=== PATIENT | male | born 1930 | race Caucasian/White ===

== ENCOUNTER 2017-02-21 19:09 | Inpatient (IN) | payer MEDICARE ==
[~2017-02-21] VITALS: Ht 170.2 cm; Wt 78.6 kg
[2017-02-21 20:17] LABS: BASOPHIL 0.1 % (0-2); EOSINOPHIL 0.4 % (0-7); HCT 33.9 % (42.0-52.0); HGB 10.3 g/dl (13.2-18.0); LYMPHOCYTE 4.6 % (15-48); MCH 24.6 pg (25.0-31.0); MCHC 30.4 g/dL (32.0-36.0); MCV 81.1 fL (78.0-100.0); MONOCYTE 5.3 % (0-12); MPV 10.2 fL (6.0-9.5); NEUTROPHIL 89.6 % (41-80); PLT 340 K/uL (150-400); RBC 4.18 M/uL (4.70-6.00); RDW 17.5 % (11.5-14.0); WBC 11.1 K/uL (4.0-10.5)
[2017-02-21 20:28] LABS: INR 1.11 (0.9-1.2); PROTHROMBIN TIME 13.9 SECONDS (11.7-14.0); PTT 32.7 SECONDS (23.2-31.4)
[2017-02-21 20:35] LABS: LACTIC ACID 2.9 mmol/L (0.5-2.2)
[2017-02-21 20:38] LABS: ACETAMINOPHEN (TYLENOL) < 5.0 ug/mL (10.0-30.0); ALCOHOL (ETOH) MEDICAL NONE DETECTED; SALICYLATE < 6 ug/mL (0-300)
[2017-02-21 20:39] LABS: ALBUMIN 3.5 g/dL (3.4-4.8); BILIRUBIN - TOTAL 0.3 mg/dL (0.1-1.0); CREATININE 1.9 mg/dL (0.7-1.2); POTASSIUM 6.3 mmol/L (3.5-5.1); TOTAL PROTEIN 6.5 g/dL (6.4-8.3)
[2017-02-21 20:56] LABS: BILIRUBIN NEGATIVE (NEGATIVE); BLOOD TRACE-INTACT Ery/uL (NEGATIVE); CLARITY CLEAR (CLEAR); COLOR YELLOW (YELLOW); GLUCOSE (U) NORMAL (NORMAL); KETONE (U) TRACE mg/dL (NEGATIVE); LEUKOCYTES TRACE Leu/uL (NEGATIVE); NITRITE NEGATIVE (NEGATIVE); PROTEIN NEGATIVE (NEGATIVE); SPECIFIC GRAVITY <=1.005 (1.001-1.030); UROBILINOGEN 0.2 mg/dL (0.2-1.0)
[2017-02-21 21:01] LABS: SQUAMOUS EPITHELIAL CELLS RARE; URINARY RBC RARE; URINARY WBC RARE
[2017-02-21 21:04] LABS: AMPHETAMINES NEGATIVE (NEGATIVE); BARBITURATES NEGATIVE (NEGATIVE); BENZODIAZEPINES NEGATIVE (NEGATIVE); COCAINE NEGATIVE (NEGATIVE); MARIJUANA (THC) NEGATIVE (NEGATIVE); METHADONE NEGATIVE (NEGATIVE); TRICYCLIC ANTIDEPRESSANT NEGATIVE (NEGATIVE)
[2017-02-22 01:35] LABS: CREATININE 1.8 mg/dL (0.7-1.2); MAGNESIUM 2.44 mg/dL (1.40-2.10); POTASSIUM 6.2 mmol/L (3.5-5.1)
[2017-02-22 07:00] LABS: CREATININE 1.8 mg/dL (0.7-1.2)
[2017-02-22 13:25] LABS: CREATININE 1.8 mg/dL (0.7-1.2); POTASSIUM 5.1 mmol/L (3.5-5.1)
--- NOTE | 2017-02-22 13:31 | NUR ---
DR STILES CALLED TO EXAMINE PT SEIZURE ACTIVITE. BLOOD SUGAR 38. 1 AMP D50 GIVEN. WILL CONTINUE TO MONITOR BLOOD GLUCOSE HOURLY.
--- NOTE | 2017-02-22 22:23 | NUR ---
JOSELITO WATCH GIVEN TO ROCÍO, DAUGHTER, TO TAKE HOME. PT AGREED FOR HER TO TAKE IT HOME.
[2017-02-23 04:21] LABS: HCT 26.5 % (42.0-52.0); HGB 7.8 g/dl (13.2-18.0); MCH 24.1 pg (25.0-31.0); MCHC 29.4 g/dL (32.0-36.0); MPV 9.6 fL (6.0-9.5); RBC 3.23 M/uL (4.70-6.00); RDW 17.7 % (11.5-14.0); WBC 3.9 K/uL (4.0-10.5)
[2017-02-23 04:41] LABS: CREATININE 1.8 mg/dL (0.7-1.2); POTASSIUM 4.4 mmol/L (3.5-5.1)
[2017-02-23 08:47] LABS: IRON 12 ug/dL (44-196); IRON % SATURATION 5 %SAT (20-50); TIBC (TOTAL IRON + UIBC) 255 U/L (228-428); UIBC 243 ug/dL (112-346)
[2017-02-23 09:06] LABS: FOLIC ACID (SERUM) 7.1 ng/mL (5.6-45.8)
[2017-02-23 11:00] LABS: BILIRUBIN NEGATIVE (NEGATIVE); BLOOD 2+ Ery/uL (NEGATIVE); CLARITY CLEAR (CLEAR); COLOR YELLOW (YELLOW); GLUCOSE (U) NORMAL (NORMAL); KETONE (U) NEGATIVE (NEGATIVE); LEUKOCYTES NEGATIVE Leu/uL (NEGATIVE); NITRITE NEGATIVE (NEGATIVE); PROTEIN NEGATIVE (NEGATIVE); SPECIFIC GRAVITY 1.015 (1.001-1.030); UROBILINOGEN 0.2 mg/dL (0.2-1.0)
[2017-02-23 11:10] LABS: URINARY WBC RARE
[2017-02-23 11:11] LABS: BACTERIA TRACE; SQUAMOUS EPITHELIAL CELLS RARE
[2017-02-23 11:27] LABS: URINE CREATININE 48.5 mg/dL (40-278); URINE TOTAL PROTEIN-RANDOM 12.2 mg/dL
[2017-02-23 16:40] LABS: CREATININE 1.5 mg/dL (0.7-1.2); POTASSIUM 4.1 mmol/L (3.5-5.1)
[2017-02-24 04:13] LABS: CREATININE 1.4 mg/dL (0.7-1.2); MAGNESIUM 1.8 mg/dL (1.40-2.10); PHOSPHORUS 2.9 mg/dL (2.7-4.5); POTASSIUM 4.5 mmol/L (3.5-5.1)
[2017-02-24 05:09] LABS: HCT 29.1 % (42.0-52.0); HGB 8.7 g/dl (13.2-18.0); MCHC 29.9 g/dL (32.0-36.0); MCV 83.6 fL (78.0-100.0); MPV 10.3 fL (6.0-9.5); RBC 3.48 M/uL (4.70-6.00); RDW 17.4 % (11.5-14.0); WBC 5.2 K/uL (4.0-10.5)
[2017-02-25 04:20] LABS: HCT 30.7 % (42.0-52.0); HGB 9.5 g/dl (13.2-18.0); MCH 25.1 pg (25.0-31.0); MCHC 30.9 g/dL (32.0-36.0); MCV 81.2 fL (78.0-100.0); MPV 9.7 fL (6.0-9.5); RBC 3.78 M/uL (4.70-6.00); RDW 17.7 % (11.5-14.0); WBC 5.8 K/uL (4.0-10.5)
[2017-02-25 04:43] LABS: CREATININE 1.4 mg/dL (0.7-1.2); POTASSIUM 4.3 mmol/L (3.5-5.1)
[2017-02-26 05:02] LABS: HCT 31.5 % (42.0-52.0); HGB 9.8 g/dl (13.2-18.0); MCH 25.1 pg (25.0-31.0); MCHC 31.1 g/dL (32.0-36.0); MCV 80.6 fL (78.0-100.0); MPV 9.8 fL (6.0-9.5); RBC 3.91 M/uL (4.70-6.00); RDW 17.3 % (11.5-14.0); WBC 5.8 K/uL (4.0-10.5)
[2017-02-26 05:26] LABS: CREATININE 1.2 mg/dL (0.7-1.2); POTASSIUM 4.3 mmol/L (3.5-5.1)
[2017-02-27 04:44] LABS: MCH 24.8 pg (25.0-31.0); MCHC 31.3 g/dL (32.0-36.0); MCV 79.4 fL (78.0-100.0); MPV 10.1 fL (6.0-9.5); RBC 4.03 M/uL (4.70-6.00); RDW 17.2 % (11.5-14.0)
[2017-02-27 04:58] LABS: CREATININE 1.2 mg/dL (0.7-1.2); POTASSIUM 4.7 mmol/L (3.5-5.1)
== END 2017-02-27 14:27 | DRG 643 ==
LOC: FER 19:09 → FMS 22:57 → FICU 22:57 → FTCU 22:57 → FICU 02-22 01:56 → FTCU 02-24 14:30 → FMS 02-25 11:00
PROVIDERS: Allergy & Immunology; Emergency Medicine; Internal Medicine Nephrology; Nurse Practitioner Family; ADMIT Internal Medicine
DX: E16.0 Drug-induced hypoglycemia without coma (principal); G93.41 Metabolic encephalopathy; N17.9 Acute kidney failure, unspecified; E87.2 Acidosis; I95.9 Hypotension, unspecified; E87.5 Hyperkalemia; J44.9 Chronic obstructive pulmonary disease, unspecified; K27.9 Peptic ulcer, site unspecified, unspecified as acute or chronic, without hemorrhage or perforation; D50.9 Iron deficiency anemia, unspecified; I12.9 Hypertensive chronic kidney disease with stage 1 through stage 4 chronic kidney disease, or unspecified chronic kidney disease; Z91.14 Patient's other noncompliance with medication regimen; E78.5 Hyperlipidemia, unspecified; N18.3 Chronic kidney disease, stage 3 (moderate); G89.29 Other chronic pain; M54.9 Dorsalgia, unspecified; N20.0 Calculus of kidney; R35.0 Frequency of micturition; T38.3X5A Adverse effect of insulin and oral hypoglycemic [antidiabetic] drugs, initial encounter; E11.22 Type 2 diabetes mellitus with diabetic chronic kidney disease; H91.90 Unspecified hearing loss, unspecified ear; R35.1 Nocturia; Z83.3 Family history of diabetes mellitus; Z86.73 Personal history of transient ischemic attack (TIA), and cerebral infarction without residual deficits; Z79.01 Long term (current) use of anticoagulants; Z79.82 Long term (current) use of aspirin; Z87.891 Personal history of nicotine dependence
CPT/HCPCS: 36415; 36430; 36600; 70450; 71010; 71250; 76770; 80048; 80053; 80305; 81001; 82533; 82550; 82570; 82607; 82728; 82746; 82803; 82947; 82962; 83540; 83550; 83605; 83735; 84100; 84156; 84300; 84484; 85025; 85610; 85730; 86850; 86900; 86901; 86922; 87205; 87324; 87449; 93005; 94010; 94640; 97110; 97116; 97163; 97167; 97530-GP; 97535; G0480; J0456; J0610; J1756; J1940; J1956; J2543; J2930; P9016